=== PATIENT | female | born 1955 | race Caucasian/White ===

== ENCOUNTER 2016-07-16 10:24 | Observation (INO) ==
--- NOTE | 2016-07-16 10:53 | Emergency Department Note ---
START Narrative - START START: Patient presents from work for evaluation of chest heaviness, rapid heart rate and burning in his head. She states that she has a history of paroxysmal atrial fibrillation and takes metoprolol to control the rate. She did not take her medicine this morning because she needs to leaf size picker her prescription. She was on her way to work and felt her heart racing and some chest heaviness. She now complains of "burning in the head" and states that this sensation always accompanies her, rapid heart rate. Her cutter wet machine is Dr. Haley. She thinks that her dose of metoprolol is 20 mg daily. She has not taken this since yesterday. She denies shortness of breath, syncope, dyspnea on exertion. Labs, x-ray, EKG, IV metoprolol have been ordered. Care of this patient will be taken over by Dr. Byrd after discussion of the case.
--- NOTE | 2016-07-16 11:07 | Emergency Department Note ---
Disposition Clinical Impression: Atrial flutter, Chest pain, Diabetes, Obesity, HLD (hyperlipidemia), HTN ( hypertension), Renal insufficiency Disposition: Admitted As Inpatient Condition: Fair Referrals: NO,PCP [Primary Care Provider] - Forms: ED Satisfaction Letter General Adult HPI - General Chief complaint: UC Arrhythmia/Palpitations Stated complaint: chest heaviness Time Seen by Provider: 07/16/16 10:39 Source: patient - History of Present Illness HPI Narrative: 60-year-old female with a history of atrial fibrillation reports the emergency department complaining of a fast heart rate and some chest pressure. The pain did not really radiate into her left arm and left jaw or right side. She has not had any vomiting diarrhea or abdominal pain. She does complain of shortness of breath. She states she has had a take diuretic medication before secondary to leg swelling but does not describe or failure. She states she has had negative stress tests in the past but never had a cardiac catheter. The patient has had no cardiac stents. She is not anticoagulated. The patient reports that her head "santacruz" when she has atrial fibrillation with a rapid rate. She experienced that today but does not describe weakness or numbness in the arms or legs bowel or bladder problems unilateral upper or lower extremity weakness no slurred speech or confusion. No headache neck stiffness or fever. No cough in general no coughing up blood no syncope. She states she used to be on control pills and had small pulmonary embolus in the past. The patient denies any other complaints or concerns. No urinary symptoms or back pain. No fevers reported or noted. Pain Scale: 6 - Related Data Allergies Allergy/AdvReac Type Severity Reaction Status Date / Time No Known Allergies Allergy Verified 07/16/16 10:58 All systems ED: reviewed and negative except as stated. Past Medical History - Past Medical History Medical history: Reports: atrial fibrillation, hyperlipidemia, hypertension - Social History Smoking Status: Unknown if ever smoked Physical Exam - General Limitations: no limitations General appearance: alert, in no apparent distress - Head Head exam: atraumatic, normocephalic, normal inspection - Eye Eye exam: Present: normal appearance, PERRL, EOMI. Absent: scleral icterus, conjunctival injection, miosis, mydriasis - ENT ENT exam: normal exam, normal oropharynx, mucous membranes moist, TM's normal bilaterally, normal external ear exam - Neck Neck exam: Present: normal inspection, full ROM, trachea midline. Absent: tenderness - Chest Chest inspection: Present: normal inspection, symmetric chest wall rise. Absent : tenderness - Respiratory Respiratory exam: Present: normal lung sounds bilaterally. Absent: respiratory distress, wheezes, accessory muscle use, prolonged expiratory phase - Cardiovascular Cardiovascular exam: Present: tachycardia - Abdominal Exam Abdominal exam: Present: soft, Non-Tender, normal bowel sounds. Absent: tenderness, distention, guarding, rebound, rigidity - Extremities Exam Extremities exam: Present: full ROM, normal capillary refill, pedal edema. Absent: tenderness, joint swelling, calf tenderness - Expanded Lower Extremity Exam Neurovascular/Tendon exam: Present: normal capillary refill. Absent: motor deficit, sensory deficit, tendon deficit, extremity cold to touch, pallor - Back Exam Back exam: Present: normal inspection, full ROM. Absent: tenderness, CVA tenderness (R), CVA tenderness (L), vertebral tenderness - Neurological Exam Neurological exam: Present: alert, oriented X3, CN II-XII intact. Absent: motor sensory deficit - Psychiatric Psychiatric exam: Present: normal affect, normal mood - Skin Skin exam: Present: warm, dry, intact, normal color. Absent: rash, diaphoresis , erythema, pallor, mottled Course Vital Signs Temperature 97.9 F 07/16/16 10:29 Pulse Rate 136 07/16/16 10:29 Respiratory Rate 19 07/16/16 10:29 Blood Pressure 115/93 07/16/16 10:29 O2 Sat by Pulse Oximetry 96 07/16/16 10:29 Temperature 97.9 F 07/16/16 10:29 Pulse Rate 80 07/16/16 11:30 Respiratory Rate 18 07/16/16 11:30 Blood Pressure 130/81 07/16/16 11:30 O2 Sat by Pulse Oximetry 93 07/16/16 11:30 Oxygen Delivery Oxygen Delivery Room Air Medical Decision Making - [facility] Narrative Medical decision making narrative: The patient was given a beta iliana in the ED and her heart rate normalized and she appeared to have a normal rhythm on the monitor. The patient has never had a heart catheter heart stents. She has had a remote stress tests. The patient has no history of CAD but is complaining of chest discomfort. The patient is elderly, has a history of diabetes, hyperlipidemia, hypertension, is significantly obese and experienced acute dysrhythmia. She has a history of atrial fibrillation and is not anticoagulated. Based on the patient's neurovascular risk factors, chest pain, acute dysrhythmia, non-anticoagulated status, I thought it be appropriate to admit the patient for observation. Aspirin was ordered. I reviewed the case with the hospitalist on-call who has accepted the patient to their care. The patient is currently stable. - Lab Data Lab results reviewed: Yes I reviewed the patient's lab results. Result diagrams: 07/16/16 11:18 07/16/16 11:18 Lab Results 07/16/16 07/16/16 07/16/16 Range/Units 11:18 11:18 11:18 WBC 10.3 (4.3-11.1) K/mcL RBC 5.09 H (3.82-4.97) M/mcL Hgb 14.5 (11.5-15.4) g/dL Hct 43.3 (35.3-44.9) % MCV 85.1 (83.0-100.0) fL MCH 28.5 (28.0-33.3) pg MCHC 33.5 (31.6-35.5) g/dL RDW 13.9 (11.5-14.5) % Plt Count 289 (140-400) K/mcL MPV 10.0 (9.4-12.4) fL Immature Gran % 0.4 (0-4) % Seg Neutrophils % 67.9 % Lymphocytes % 23.7 % Monocytes % 6.1 % Eosinophils % 1.5 % Basophils % 0.4 % Neutrophils # 7.0 (1.6-8.9) K/mcL Lymphocytes # 2.5 (0.6-4.6) K/mcL Monocytes # 0.6 (0.0-1.3) K/mcL Eosinophils # 0.2 (0.0-0.6) K/mcL Basophils # 0.0 (0.0-0.2) K/mcL PT 10.9 (9.4-12.1) Seconds INR 1.0 APTT 31.4 (26.0-36.0) Seconds Sodium (136-145) mEq/L Potassium (3.5-4.5) mEq/L Chloride (98-109) mEq/L Carbon Dioxide (19-29) mEq/L BUN (7-20) mg/dL Creatinine (0.57-1.11) mg/dL Est GFR ( Amer) (> 60) Est GFR (Non-Af Amer) (> 60) BUN/Creatinine Ratio (6-26) Glucose (70-99) mg/dL Calculated Osmolality (280-300) Lactic Acid (0.5-2.2) mmol/L Calcium (8.6-10.8) mg/dL Total Bilirubin (0.2-1.2) mg/dL Direct Bilirubin (0.0-0.5) mg/dL Indirect Bilirubin (0.0-1.2) mg/dL AST (5-34) Units/L ALT (0-55) Units/L Alkaline Phosphatase (38-126) Units/L Troponin I (0-0.03) ng/mL C-Reactive Protein (Less than 5) mg/L B-Natriuretic Peptide 33 (0-100) pg/mL Serum Total Protein (6.0-8.3) g/dL Albumin (3.5-5.0) g/dL Globulin (2.4-3.5) g/dL Albumin/Globulin Ratio (1.1-2.2) 07/16/16 07/16/16 07/16/16 Range/Units 11:18 11:18 12:24 WBC (4.3-11.1) K/mcL RBC (3.82-4.97) M/mcL Hgb (11.5-15.4) g/dL Hct (35.3-44.9) % MCV (83.0-100.0) fL MCH (28.0-33.3) pg MCHC (31.6-35.5) g/dL RDW (11.5-14.5) % Plt Count (140-400) K/mcL MPV (9.4-12.4) fL Immature Gran % (0-4) % Seg Neutrophils % % Lymphocytes % % Monocytes % % Eosinophils % % Basophils % % Neutrophils # (1.6-8.9) K/mcL Lymphocytes # (0.6-4.6) K/mcL Monocytes # (0.0-1.3) K/mcL Eosinophils # (0.0-0.6) K/mcL Basophils # (0.0-0.2) K/mcL PT (9.4-12.1) Seconds INR APTT (26.0-36.0) Seconds Sodium 139 (136-145) mEq/L Potassium 4.2 (3.5-4.5) mEq/L Chloride 103 (98-109) mEq/L Carbon Dioxide 25 (19-29) mEq/L BUN 23 H (7-20) mg/dL Creatinine 1.16 H (0.57-1.11) mg/dL Est GFR ( Amer) 58 L (> 60) Est GFR (Non-Af Amer) 48 L (> 60) BUN/Creatinine Ratio 20 (6-26) Glucose 114 H (70-99) mg/dL Calculated Osmolality 293 (280-300) Lactic Acid 2.1 (0.5-2.2) mmol/L Calcium 10.3 (8.6-10.8) mg/dL Total Bilirubin 0.5 (0.2-1.2) mg/dL Direct Bilirubin 0.1 (0.0-0.5) mg/dL Indirect Bilirubin 0.4 (0.0-1.2) mg/dL AST 24 (5-34) Units/L ALT 19 (0-55) Units/L Alkaline Phosphatase 96 (38-126) Units/L Troponin I 0.01 (0-0.03) ng/mL C-Reactive Protein 15 H (Less than 5) mg/L B-Natriuretic Peptide (0-100) pg/mL Serum Total Protein 8.6 H (6.0-8.3) g/dL Albumin 4.1 (3.5-5.0) g/dL Globulin 4.5 H (2.4-3.5) g/dL Albumin/Globulin Ratio 0.9 L (1.1-2.2) - Radiology Data Radiology results reviewed: Yes I reviewed the patient's radiology results.
[2016-07-16 11:24] LABS: Basophils % 0.4 %; Eosinophils # 0.2 K/mcL (0.0-0.6); Eosinophils % 1.5 %; Hematocrit 43.3 % (35.3-44.9); Hemoglobin 14.5 g/dL (11.5-15.4); Immature Granulocytes % 0.4 % (0-4); Lymphocytes # 2.5 K/mcL (0.6-4.6); Lymphocytes % 23.7 %; Mean Corpuscular HGB Conc 33.5 g/dL (31.6-35.5); Mean Corpuscular Hemoglobin 28.5 pg (28.0-33.3); Mean Corpuscular Volume 85.1 fL (83.0-100.0); Monocytes # 0.6 K/mcL (0.0-1.3); Monocytes % 6.1 %; Platelet Count 289 K/mcL (140-400); Red Blood Count 5.09 M/mcL (3.82-4.97); Red Cell Distribution Width 13.9 % (11.5-14.5); Segmented Neutrophils % 67.9 %
[2016-07-16] MEDS: Aspirin 81 MG TAB.CHEW PO ONE ×2 (11:25→11:26)
[2016-07-16] MEDS: *HR* Metoprolol 5 MG/5 ML VIAL IVP ONE (11:26)
[2016-07-16 11:30] LABS: Prothrombin Time 10.9 Seconds (9.4-12.1)
[2016-07-16 11:33] LABS: Activated Partial Thrombo Time 31.4 Seconds (26.0-36.0)
[2016-07-16 11:37] LABS: Calcium 10.3 mg/dL (8.6-10.8); Potassium 4.2 mEq/L (3.5-4.5)
[2016-07-16 12:34] LABS: Albumin 4.1 g/dL (3.5-5.0); Albumin/Globulin Ratio 0.9 (1.1-2.2); Bilirubin,Direct 0.1 mg/dL (0.0-0.5); Bilirubin,Indirect 0.4 mg/dL (0.0-1.2); Bilirubin,Total 0.5 mg/dL (0.2-1.2); Globulin 4.5 g/dL (2.4-3.5); Total Protein 8.6 g/dL (6.0-8.3)
[2016-07-16] MEDS ORDERED: Naloxone 0.4 MG/ML INJ IVP PRN (14:15)
--- NOTE | 2016-07-16 15:34 | Internal Med History&Physical ---
<Sang Tidwell - Last Filed: 07/16/16 16:25> Date of Encounter: 07/16/16 Time of Encounter: 14:30 Assessment and Plan (1) Atrial flutter Current visit: Yes Status: Acute Assess: Patient presents from the ED with chief complaint of chest heaviness and discomfort related to atrial fibrillation. States the pain does not radiate to arm or neck. Patient has a history of atrial flutter, chest pain, neuropathy of lower extremities, obesity, hyperlipidemia, hypertension, and stage III renal disease. She reports occasional pedal edema bilaterally and SOB. States she had a negative stress test in the past but was not catheterized or stented. Patient reports her only current anticoagulation is 81 mg low-dose aspirin daily. Mrs. Canales reports early indication of atrial flutter when she gets burning sensation in her head. Patient reports she has history of 1 DVT in the lower leg related to use of control pills. Plan: Repeat EKG Continuous cardiac monitoring Bilateral blood pressures And troponins 2 Lipid panel ordered Continue Lopressor Continue pravastatin Continue low-dose aspirin therapy Monitor patient's SpO2 Monitor patient's vital signs Patient patient is followed by Dr. Haley. Patient was encouraged to follow- up with Dr. Haley [facility]. Qualifiers: Atrial flutter type: unspecified Qualified Code(s): I48.92 - Unspecified atrial flutter (2) Chest pain Current visit: Yes Status: Acute Assess: Patient presents from the ED with chief complaint of chest heaviness and discomfort related to atrial fibrillation. States the pain does not radiate to arm or neck. Patient has a history of atrial flutter, chest pain, neuropathy of lower extremities, obesity, hyperlipidemia, hypertension, and stage III renal disease. She reports occasional pedal edema bilaterally and SOB. States she had a negative stress test in the past but was not catheterized or stented. Patient reports her only current anticoagulation is 81 mg low-dose aspirin daily. Mrs. Canales reports early indication of atrial flutter when she gets burning sensation in her head. Patient reports she has history of 1 DVT in the lower leg related to use of control pills. Plan: Repeat EKG Continuous cardiac monitoring Bilateral blood pressures And troponins 2 Lipid panel ordered Continue Lopressor Continue pravastatin Continue low-dose aspirin therapy Monitor patient's SpO2 Monitor patient's vital signs Patient patient is followed by Dr. Haley. Patient was encouraged to follow- up with Dr. Haley [facility]. Qualifiers: Chest pain type: other chest pain Qualified Code(s): R07.89 - Other chest pain; R07.8 - Other chest pain (3) HLD (hyperlipidemia) Current visit: Yes Status: Chronic Assess: Patient presents with history of chronic hyperlipidemia. Plan: Lipid panel ordered Continue pravastatin Follow-up labs ordered Qualifiers: Hyperlipidemia type: unspecified Qualified Code(s): E78.5 - Hyperlipidemia , unspecified (4) HTN (hypertension) Current visit: Yes Status: Chronic Assess: Patient has history of chronic hypertension. Plan: Continue Lopressor Bilateral BP ordered Monitor patient's vital signs Qualifiers: Hypertension type: essential hypertension Qualified Code(s): I10 - Essential (primary) hypertension (5) Renal insufficiency Current visit: Yes Status: Chronic Assess: Patient has history of chronic renal insufficiency and is currently in stage III renal disease. Plan: Renal diet ordered Monitor I&O (6) DVT prophylaxis Current visit: Yes Status: Acute Assess: Patient placed on DVT prophylaxis due to current health status of atrial fibrillation and inpatient status.. Plan: Heparin 5,000 SQ Q8HR ordered Monitor patient for signs of calf swelling or pain and SOB Monitor patient's vital signs Internal Medicine - H&P: HPI Chief complaint: Chest heaviness/pain Admitted From: Emergency Dept Plans for Post Hospital Care: Home History of present illness: Ms. Canales is a 60 year old female who presents from the ED with chief complaint of chest heaviness and discomfort related to atrial fibrillation. States the pain does not radiate to arm or neck. Patient has a history of atrial flutter, chest pain, neuropathy of lower extremities, obesity, hyperlipidemia, hypertension, and stage III renal disease. Patient denies, fever , nausea, vomiting, and diarrhea. She reports occasional pedal edema bilaterally and SOB. States she had a negative stress test in the past but was not catheterized or stented. Patient reports her only current anticoagulation is 81 mg low-dose aspirin daily. Mrs. Canales reports early indication of atrial flutter when she gets burning sensation in her head. Patient reports she has history of 1 DVT in the lower leg related to use of control pills. Patient is placed as observation status with repeat EKG, continuous cardiac monitoring, bilateral BP, glucose monitoring, and trending troponins 2. Patient will also receive omeprazole 20 mg daily for symptoms of GERD. Patient to receive DVT prophylaxis due to history of DVT which will consist of heparin 5, 000 units SQ Q8. Patient will be monitored closely. 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) Current living situation: Home - Independent Activity Level: Independent ambulation Recent Out of Country Travel Within the Last 8 Weeks: No Exposure or Possible Exposure to Illness During Travel: No - Family History Father Race: Family Member Ethnicity: Non- Living Status: Hx Family Cardiac Disorders: Yes (HTN, Stroke) Mother Race: Family Member Ethnicity: Non- Living Status: Age at : 83 Cause of : CHF Hx Family Cardiac Disorders: Yes (HTN, CHF, HD, DVT) Sister Race: Family Member Ethnicity: Non- Living Status: Still Living Hx Family Cardiac Disorders: Yes (HTN) Hx Family Endocrine Disorder: Yes (DM) Internal Medicine - H&P: Meds Albuterol Sulfate [Proair Hfa] 2 puff IH Q4H PRN 07/16/16 [History] Aspirin [Lo-Dose Aspirin EC] 81 mg PO DAILY 07/16/16 [History] Beclomethasone Diprop 80mcg [Qvar 80 mcg] 2 puff IH BID 07/16/16 [History] Cholecalciferol (D-3) [Vitamin D] 5,000 unit PO 2XW 07/16/16 [History] Fluticasone Propionate Nasal [Flonase] 1 spray NS DAILY 07/16/16 [History] Gabapentin [Neurontin] 300 mg PO BID 07/16/16 [History] Lisinopril/Hydrochlorothiazide [Zestoretic 20-25 mg Tablet] 1 tab PO DAILY 07/16 [History] Meloxicam 15 mg PO DAILY 07/16/16 [History] Metoprolol XL (24 HR) Succ [Toprol XL] 25 mg PO DAILY 07/16/16 [History] Montelukast [Singulair] 10 mg PO QPM 07/16/16 [History] Pravastatin Sodium [Pravachol] 40 mg PO DAILY 07/16/16 [History] Sertraline [Zoloft] 50 mg PO HS 07/16/16 [History] Tizanidine HCl [Zanaflex] 2 mg PO HS 07/16/16 [History] Ubidecarenone/Vit E Acetate [Co Q-10 100 mg Softgel] 100 mg PO DAILY 07/16/16 [ History] Allergies No Known Allergies Allergy (Verified 07/16/16 10:58) All Systems PM: A 10-system review of systems was performed and is negative for pertinent findings except as documented above in the HPI. - Constitutional Constitutional: no chills, no fever(s), no night sweats - EENT Eyes: no change in vision, no discharge, no pain, no photophobia Ears: no ear discharge, no ear pain, no tinnitus Nose, mouth and throat: no dysphagia, no nasal discharge, no neck pain, no sore throat - Breasts Breasts: as per HPI - Cardiovascular Cardiovascular ROS IM: edema (Patient reports occasional edema of lower extremities bilaterally), irregular heart rhythm - Respiratory Respiratory: cough (Patient reports occasional sputum is clear) - Gastrointestinal Gastrointestinal: no abdominal pain, no diarrhea, no hematemesis, no hematochezia, no melena, no nausea, no vomiting - Genitourinary Genitourinary: no change in urinary stream, no dysuria, no flank pain, no hematuria Additional comments: Patient reports she has a tendency to hold her urine for up to 8 hours of work without urinating. Menstruation: as per HPI - Musculoskeletal Musculoskeletal ROS IM: numbness, tingling (Patient reports neuropathy of lower extremities) - Integumentary Integumentary IM: no rash, no unusual bruising - Neurological Neurological ROS: numbness (Patient reports neuropathy of lower extremities), tingling, no confusion, no convulsions, no focal weakness, no tremor(s) - Psychiatric Psychiatric: as per HPI - Endocrine Endocrine IM: as per HPI - Hematologic/Lymphatic Hematologic/Lymphatic: no easy bruising - Allergic/Immunologic Allergic/Immunologic: as per HPI (Patient reports she has seasonal allergies and asthma), seasonal rhinorrhea - Constitutional Vitals: Temp Pulse Resp BP Pulse Ox 97.7 F 82 16 125/83 97 07/16/16 15:26 07/16/16 15:26 07/16/16 15:26 07/16/16 15:26 07/16/16 15:26 General appearance: Present: cooperative, A&O X 3, pleasant, obese, answers questions appropriately - Head Head exam: Present: atraumatic, normocephalic - Eye Eye exam: Present: PERRL, conjuntiva pink, sclera anicteric Pupils: Present: PERRL - ENT ENT exam: Present: normal exam, normal external ear exam - Neck Neck exam general surgery: Present: supple, trachea midline. Absent: lymphadenopathy - Respiratory Respiratory exam: Present: CTAB. Absent: accessory muscle use, rales, rhonchi, wheezes - Cardiovascular Cardiovascular exam: Present: RRR, +S1, +S2. Absent: diastolic murmur, gallop, rubs, systolic murmur Additional comments: Upon auscultation, patient's HR is now RRR. - GI/Abdominal GI/Abdominal exam: Present: normal bowel sounds, soft, no peritoneal signs. Absent: distended, tenderness - Rectal Rectal exam: Present: deferred - Additional comments: exam deferred. - Extremities Exam Extremities exam: Present: warm, radial pulses palpable and symetrical. Absent : calf tenderness, cyanotic, pedal edema - Back Exam Back exam: Present: normal inspection - Neurological Exam Neurological exam: Present: CN II-XII intact, oriented X3, no focal deficits. Absent: pronater drift, facial droop, speech deficit - Psychiatric Psychiatric exam: Present: normal affect, normal mood - Skin Skin exam: Present: dry, intact Internal Med - H&P Results - Labs CBC & Chem 7: 07/16/16 11:18 07/16/16 11:18 - EKG Data -: EKG Interpreted by Myself - EKG Data Prior EKG available for review: no EKG comments: 07/16/16 15:47 EKG dated 07/16/16 shows atrial flutter/tachycardia with rapid ventricular response. Moderate ST depression [0.05+ mV ST depression]. Abnormal ECG. - Diagnostic Studies Chest x-ray Additional comments: 2-View CXR dated 07/16/16 shows cardiac silhouette is normal in size. Calcified granuloma left upper lung. Lungs appear clear otherwise. No acute bony abnormality. Calcification of thoracic aorta. No acute findings. <JohnDemiulises - Last Filed: 07/16/16 19:24> Date of Encounter: 07/16/16 Internal Medicine - H&P: HPI History of present illness: Ms. Canales is a 60 year old female All Systems PM: A 10-system review of systems was performed and is negative for pertinent findings except as documented above in the HPI. - Constitutional Vitals: Temp Pulse Resp BP Pulse Ox 98.1 F 72 15 107/68 95 07/16/16 19:03 07/16/16 19:03 07/16/16 19:03 07/16/16 19:03 07/16/16 19:03 Internal Med - H&P Results - Labs CBC & Chem 7: 07/16/16 11:18 07/16/16 11:18 Labs: Cardiac Enzymes 07/16/16 Range/Units 17:45 Troponin I 0.02 (0-0.03) ng/mL - Attending Attestation I examined this patient and my medical decision-making was reviewed with the Advanced Practice Nurse. I agree with the documented findings, disposition and treatment plan as described .
[2016-07-16] MEDS ORDERED: Acetaminophen 325 MG TABLET PO PRN (19:22)
[2016-07-16] MEDS: Beclomethasone 80mcg MDI IH SCH (20:12)
[2016-07-16] MEDS ORDERED: tiZANidine 4 MG TABLET PO SCH (21:00)
[2016-07-16] MEDS: Gabapentin 300 MG CAPSULE PO SCH (21:09)
[2016-07-16] MEDS: *HR* Heparin 5,000 UNIT/ML VIAL SQ SCH (21:10)
[2016-07-17 01:25] LABS: Albumin 3.5 g/dL (3.5-5.0); Bilirubin,Total 0.6 mg/dL (0.2-1.2); Calcium 9.5 mg/dL (8.6-10.8); Chol/HDL Ratio 5.2 (0-4.9); Globulin 3.4 g/dL (2.4-3.5); Hemoglobin A1C 5.7 %; Magnesium 1.9 mg/dL (1.6-2.6); Phosphorous 3.6 mg/dL (2.3-4.7); Potassium 4.3 mEq/L (3.5-4.5); Total Protein 6.9 g/dL (6.0-8.3)
[2016-07-17 01:26] LABS: Albumin 3.5 g/dL (3.5-5.0); Bilirubin,Direct 0.2 mg/dL (0.0-0.5); Bilirubin,Indirect 0.4 mg/dL (0.0-1.2); Bilirubin,Total 0.6 mg/dL (0.2-1.2); Globulin 3.4 g/dL (2.4-3.5); Total Protein 6.9 g/dL (6.0-8.3)
[2016-07-17 04:38] LABS: Basophils # 0.1 K/mcL (0.0-0.2); Basophils % 0.6 %; Eosinophils # 0.3 K/mcL (0.0-0.6); Eosinophils % 3.9 %; Hematocrit 37.3 % (35.3-44.9); Immature Granulocytes % 0.3 % (0-4); Lymphocytes # 3.2 K/mcL (0.6-4.6); Mean Corpuscular Hemoglobin 28.9 pg (28.0-33.3); Mean Corpuscular Volume 87.8 fL (83.0-100.0); Monocytes # 0.5 K/mcL (0.0-1.3); Monocytes % 6.6 %; Neutrophils # 3.8 K/mcL (1.6-8.9); Nucleated Red Blood Cells 0.4 /100 WBC (0); Platelet Count 210 K/mcL (140-400); Red Blood Count 4.25 M/mcL (3.82-4.97); Red Cell Distribution Width 14.5 % (11.5-14.5); Segmented Neutrophils % 47.6 %
[2016-07-17 04:57] LABS: Hemoglobin 12.3 g/dL (11.5-15.4)
[2016-07-17 04:58] LABS: Platelet Clumps Few (Not Present); Platelet Estimate Normal (Normal)
[2016-07-17] MEDS: *HR* Heparin 5,000 UNIT/ML VIAL SQ SCH (05:57)
[2016-07-17] MEDS: Beclomethasone 80mcg MDI IH SCH (08:10)
[2016-07-17] MEDS ORDERED: CO Q10 100 MG PO SCH (09:00)
[2016-07-17] MEDS ORDERED: Cholecalciferol (D-3) 1,000 UNIT TABLET PO SCH (09:00)
[2016-07-17] MEDS ORDERED: Metoprolol XL (24 HR) Succ 25 MG TAB.ER.24H PO SCH (09:00)
[2016-07-17] MEDS ORDERED: Aspirin Enteric Coated 81 MG Tablet PO SCH (09:00)
[2016-07-17] MEDS ORDERED: Fluticasone Propionate Nasal 50 MCG/SPRAY BOTTLE NS SCH (09:00)
[2016-07-17] MEDS: Gabapentin 300 MG CAPSULE PO SCH (09:03)
[2016-07-17 11:04] VITALS: BP 98/66
--- NOTE | 2016-07-17 12:04 | Discharge Summary ---
Date of Encounter: 07/17/16 Time of Encounter: 09:45 - Discharge Diagnosis (1) Atrial flutter Priority: Primary Status: Resolved Comments: Patient stating she had run out of her metoprolol for approximately 2 days prior to this episode. Was resumed and her heart rate has remained stable since. 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 Qualifiers: Atrial flutter type: unspecified Qualified Code(s): I48.92 - Unspecified atrial flutter (2) Chest pain Priority: Primary Status: Resolved Qualifiers: Chest pain type: other chest pain Qualified Code(s): R07.89 - Other chest pain; R07.8 - Other chest pain (3) CKD (chronic kidney disease) stage 3, GFR 30-59 ml/min Priority: Secondary Status: Chronic Comments: Remained stable and consistent with her baseline throughout this admission. (4) DVT prophylaxis Priority: Primary Status: Acute Comments: Subcutaneous heparin (5) Diabetes Priority: Secondary Status: Ruled-out Comments: Ruled out. A1c 5.7%. No diabetic medications at home. Qualifiers: Diabetes mellitus type: other specified (including GUS) Diabetes mellitus complication status: without complication Diabetes mellitus termite control servicer insulin use: without termite control servicer use Qualified Code(s): E13.9 - Other specified diabetes mellitus without complications (6) Obesity Priority: Secondary Status: Chronic (7) HLD (hyperlipidemia) Priority: Secondary Status: Chronic Comments: Triglyceride 374. Rest of lipid panel borderline abnormal. Recommend continue statin and low-cholesterol diet. Possible addition of fenofibrate at primary care's discretion Qualifiers: Hyperlipidemia type: unspecified Qualified Code(s): E78.5 - Hyperlipidemia , unspecified (8) HTN (hypertension) Priority: Secondary Status: Chronic Comments: Controlled with regular home medication, follow-up outpatient Qualifiers: Hypertension type: essential hypertension Qualified Code(s): I10 - Essential (primary) hypertension - Discharge Medications Home Medications: Albuterol Sulfate [Proair Hfa] 2 puff IH Q4H PRN 07/16/16 [History] Aspirin [Lo-Dose Aspirin EC] 81 mg PO DAILY 07/16/16 [History] Beclomethasone Diprop 80mcg [QVAR 80 mcg] 2 puff IH BID 07/16/16 [History] Cholecalciferol (D-3) [Vitamin D] 5,000 unit PO 2XW 07/16/16 [History] Fluticasone Propionate Nasal [Flonase] 1 spray NS DAILY 07/16/16 [History] Gabapentin [Neurontin] 300 mg PO BID 07/16/16 [History] Lisinopril/Hydrochlorothiazide [Zestoretic 20-25 mg Tablet] 1 tab PO DAILY 07/16 [History] Meloxicam 15 mg PO DAILY 07/16/16 [History] Metoprolol XL (24 HR) Succ [Toprol Xl] 25 mg PO DAILY 07/16/16 [History] Montelukast [Singulair] 10 mg PO QPM 07/16/16 [History] Pravastatin Sodium [Pravachol] 40 mg PO DAILY 07/16/16 [History] Sertraline [Zoloft] 50 mg PO HS 07/16/16 [History] Tizanidine HCl [Zanaflex] 2 mg PO HS 07/16/16 [History] Ubidecarenone/Vit E Acetate [Co Q-10 100 mg Softgel] 100 mg PO DAILY 07/16/16 [ History] Allergies/Adverse Reactions: Allergies No Known Allergies Allergy (Verified 07/16/16 10:58) Procedures/tests Complete & Pending: Procedures Performed prior 72 hours Category Date Time Status ECG 12 lead ECG [ECG] Routine Y 07/16/16 14:15 Ordered Date of admission: 07/16/16 14:12 Primary care physician: PCP NO Discharging clinician: Radha Mathis Anticipated date of discharge: 07/17/16 - Patient Status Disposition: Home, Self-Care Condition: Fair Functional capacity at discharge: independent ambulation Overall status at discharge: patient is back to baseline - Discharge Instructions Follow Up With: Fara Rawls CNP [Advanced Practice Nurse] - 07/19/16 9:30 am Ashish Haley DO [Partnered Physician] - Additional Instructions: Follow-up with primary care provider as scheduled, follow-up with cardiology as soon as possible - Diet and Activity Activity: increase activity as tolerated Diet: low fat, low cholesterol, low salt diet Hospital course: Ms. Canales is a 60 year old female with past medical atrial fibrillation not on anticoagulation therapy, and history of DVT related to taking control, hyperlipidemia, hypertension, chronic kidney disease stage III. Patient presented to the emergency department with chief complaint of chest heaviness and discomfort related to atrial fibrillation. Patient denies radiation of the pain. She states she has a history of atrial flutter/fibrillation. Patient denies fever, nausea or vomiting. Patient also endorsed occasional pedal edema and shortness of breath. Workup in the emergency department revealing atrial flutter and her heart rate normalized with a beta iliana. Patient stating she had not taken her beta iliana for 2 days prior to presentation because she had not picked up her refill prescription yet. She was admitted to the hospitalist service for further evaluation and management. She was observed overnight and her heart rate remained stable. She remained euvolemic on examination and denied shortness of breath. She denied chest pain or chest pressure during this admission. Troponins were negative. Chest x-ray negative. She was discharged home in stable condition with close outpatient follow-up recommended. She was encouraged to take her medication as prescribed. ITS Impressions Chest X-Ray 07/16/16 11:27 IMPRESSION: No acute findings. D/ / Slime Salazar MD / Slime Salazar MD Interpreting Provider: Slime Salazar MD - Time Spent with Patient Total time spent providing and/or coordinating discharge services: - Constitutional Vitals: Temp Pulse Resp BP Pulse Ox 98.0 F 67 16 98/66 91 07/17/16 11:01 07/17/16 11:01 07/17/16 11:01 07/17/16 11:01 07/17/16 11:01 General appearance: Present: cooperative, A&O X 3, pleasant, no acute distress, obese, answers questions appropriately - Head Head exam: Present: atraumatic, normocephalic - Eye Eye exam: Present: PERRL, conjuntiva pink, sclera anicteric Pupils: Present: PERRL - Neck Neck exam general surgery: Present: supple, trachea midline. Absent: lymphadenopathy - Respiratory Respiratory exam: Present: CTAB. Absent: accessory muscle use, rales, respiratory distress, rhonchi, wheezes - Cardiovascular Cardiovascular exam: Present: RRR, +S1, +S2. Absent: diastolic murmur, gallop, rubs, systolic murmur - GI/Abdominal GI/Abdominal exam: Present: normal bowel sounds, soft, no peritoneal signs. Absent: distended, tenderness - Extremities Exam Extremities exam: Present: warm, radial pulses palpable and symetrical. Absent : calf tenderness, cyanotic, pedal edema - Neurological Exam Neurological exam: Present: alert, CN II-XII intact, normal gait, oriented X3, no focal deficits, strengths equal and symetr throughout. Absent: pronater drift, facial droop, speech deficit - Skin Skin exam: Present: dry, intact, normal color, warm
--- NOTE | 2016-07-17 17:08 | Electrocardiograph Report ---
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
== END 2016-07-17 13:05 | disposition home or self-care (01) ==
LOC: EMEROO 10:24 → 3BNU 10:24 → MERGE 14:12 → 3BNU 15:00
PROVIDERS: ADMIT Nurse Practitioner Family; ATTEND Nurse Practitioner Family

== ENCOUNTER 2019-12-20 10:51 | Observation (INO) ==
[2019-12-20] MEDS ORDERED: 0.9 % Sodium Chloride 1,000 ML IVC ONE (11:06)
[2019-12-20] MEDS ORDERED: Ketorolac 15 MG/ML VIAL IVP ONE (11:06)
[2019-12-20 11:21] LABS: Basophils % 0.2 %; Hematocrit 41.3 % (35.3-44.9); Hemoglobin 13.5 g/dL (11.5-15.4); Immature Granulocytes % 0.4 % (0-4); Lymphocytes # 0.8 K/mcL (0.6-4.6); Lymphocytes % 14.8 %; Mean Corpuscular HGB Conc 32.7 g/dL (31.6-35.5); Mean Corpuscular Hemoglobin 27.8 pg (28.0-33.3); Mean Corpuscular Volume 85.2 fL (83.0-100.0); Mean Platelet Volume 11.8 fL (9.4-12.4); Monocytes # 0.3 K/mcL (0.0-1.3); Monocytes % 5.2 %; Neutrophils # 4.3 K/mcL (1.6-8.9); Platelet Count 208 K/mcL (140-400); Red Blood Count 4.85 M/mcL (3.82-4.97); Red Cell Distribution Width 14.6 % (11.5-14.5); Segmented Neutrophils % 79.4 %; White Blood Count 5.4 K/mcL (4.3-11.1)
[2019-12-20 11:36] LABS: Calcium 9.1 mg/dL (8.6-10.3); Potassium 3.3 mEq/L (3.5-5.1); Troponin I 0.03 ng/mL (< 0.04)
[2019-12-20] MEDS ORDERED: *HR* Metoprolol 5 MG/5 ML VIAL IVP ONE (13:55)
[2019-12-20] MEDS ORDERED: Naloxone 0.4 MG/ML INJ IVP PRN (16:02)
[2019-12-20] MEDS ORDERED: *HR* Metoprolol 5 MG/5 ML VIAL IVP PRN (16:06)
[2019-12-20] MEDS ORDERED: Potassium Chloride Elixir 20 MEQ/15 ML UDC PO ONE (16:06)
[2019-12-20] MEDS: Apixaban 5 MG TABLET PO SCH (19:21)
[2019-12-20] MEDS: Gabapentin 300 MG CAPSULE PO SCH (19:21)
[2019-12-20] MEDS: Metoprolol XL (24 HR) Succ 25 MG TAB.ER.24H PO SCH (19:22)
[2019-12-20 21:28] LABS: Magnesium 1.9 mg/dL (1.6-2.6); Phosphorous 2.7 mg/dL (2.7-4.5)
[2019-12-20 21:30] LABS: Albumin 3.5 g/dL (3.5-5.7); Albumin/Globulin Ratio 1.1 (1.1-2.2); Bilirubin,Direct 0.2 mg/dL (0.0-0.2); Bilirubin,Indirect 0.5 mg/dL (0.0-1.0); Bilirubin,Total 0.7 mg/dL (0.3-1.0); Globulin 3.3 g/dL (2.4-3.5); Total Protein 6.8 g/dL (6.4-8.9)
[2019-12-20 21:42] LABS: Thyroid Stimulating Hormone 0.939 mcIU/mL (0.340-5.600)
[2019-12-20] MEDS: Acetaminophen 325 MG TABLET PO PRN (22:22)
[2019-12-21 01:56] LABS: Basophils % 0.2 %; Hemoglobin 12.3 g/dL (11.5-15.4); Immature Granulocytes % 0.6 % (0-4); Lymphocytes # 0.9 K/mcL (0.6-4.6); Lymphocytes % 16.5 %; Mean Corpuscular HGB Conc 32.4 g/dL (31.6-35.5); Mean Corpuscular Hemoglobin 28.8 pg (28.0-33.3); Mean Platelet Volume 12.1 fL (9.4-12.4); Monocytes # 0.4 K/mcL (0.0-1.3); Monocytes % 6.5 %; Neutrophils # 4.1 K/mcL (1.6-8.9); Platelet Count 183 K/mcL (140-400); Red Blood Count 4.27 M/mcL (3.82-4.97); Segmented Neutrophils % 76.2 %; White Blood Count 5.4 K/mcL (4.3-11.1)
[2019-12-21 02:20] LABS: Calcium 8.4 mg/dL (8.6-10.3); Magnesium 1.8 mg/dL (1.6-2.6); Phosphorous 2.2 mg/dL (2.7-4.5); Potassium 4.1 mEq/L (3.5-5.1)
[2019-12-21] MEDS ORDERED: Ondansetron 4 MG/2 ML VIAL IVP PRN (07:46)
[2019-12-21] MEDS: Apixaban 5 MG TABLET PO SCH ×2 (08:28→20:15)
[2019-12-21] MEDS: Metoprolol XL (24 HR) Succ 25 MG TAB.ER.24H PO SCH ×2 (08:28→20:15)
[2019-12-21] MEDS: Gabapentin 300 MG CAPSULE PO SCH ×2 (08:29→20:15)
[2019-12-21] MEDS: Acetaminophen 325 MG TABLET PO PRN ×2 (08:29→17:08)
[2019-12-21] MEDS ORDERED: Acetaminophen IV 1,000 MG/100 ML INFUS..BTL IVPB ONE (21:00)
[2019-12-22 06:45] LABS: Basophils % 0.2 %; Hematocrit 37.7 % (35.3-44.9); Hemoglobin 11.7 g/dL (11.5-15.4); Immature Granulocytes % 0.8 % (0-4); Lymphocytes # 1.5 K/mcL (0.6-4.6); Lymphocytes % 30.7 %; Mean Corpuscular Hemoglobin 28.8 pg (28.0-33.3); Mean Corpuscular Volume 92.9 fL (83.0-100.0); Mean Platelet Volume 11.7 fL (9.4-12.4); Monocytes # 0.4 K/mcL (0.0-1.3); Monocytes % 7.6 %; Platelet Count 177 K/mcL (140-400); Red Blood Count 4.06 M/mcL (3.82-4.97); Red Cell Distribution Width 15.4 % (11.5-14.5); Segmented Neutrophils % 60.7 %
[2019-12-22 07:51] LABS: Calcium 8.4 mg/dL (8.6-10.3)
[2019-12-22] MEDS: Gabapentin 300 MG CAPSULE PO SCH (08:15)
[2019-12-22] MEDS: Metoprolol XL (24 HR) Succ 25 MG TAB.ER.24H PO SCH (08:15)
[2019-12-22] MEDS: Apixaban 5 MG TABLET PO SCH (08:15)
[2019-12-22] MEDS: Acetaminophen 325 MG TABLET PO PRN (08:23)
[2019-12-22 08:27] VITALS: BP 108/58
[2019-12-22 11:12] LABS: Albumin 3.6 g/dL (3.5-5.7); Albumin/Globulin Ratio 1.1 (1.1-2.2); Bilirubin,Total 0.6 mg/dL (0.3-1.0); Calcium 8.7 mg/dL (8.6-10.3); Globulin 3.2 g/dL (2.4-3.5); Potassium 3.7 mEq/L (3.5-5.1); Total Protein 6.8 g/dL (6.4-8.9)
[2019-12-22] MEDS ORDERED: Acetaminophen IV 1,000 MG/100 ML INFUS..BTL IVPB SCH (20:38)
== END 2019-12-22 13:27 | disposition home or self-care (01) ==
LOC: EMEROOARM 10:51 → 2NENU 10:51 → SUATTDRO 14:59 → 2NENU 15:29
PROVIDERS: ADMIT Internal Medicine; ATTEND Family Medicine